=== PATIENT | female | born 1970 | race Caucasian/White ===

== ENCOUNTER 2016-03-27 08:00 | Outpatient (CLI) | payer BC | END 2016-03-27 23:59 | DX: N39.0 Urinary tract infection, site not specified (principal) ==

== ENCOUNTER 2017-02-18 08:00 | Outpatient (CLI) | payer BC ==
[2017-02-18 17:38] LABS: BILIRUBIN,URINE NEGATIVE (NEGATIVE); PH,URINE 5.5 PH (5.0-7.5)
[2017-02-18 17:42] LABS: WBC,URINE 0-3 /HPF (0-5)
[2017-02-18 17:43] LABS: UR CULTURE IF IND NOT INDICATED
== END 2017-02-18 08:01 | disposition home or self-care (01) ==
LOC: LAB.F 08:00
PROVIDERS: ATTEND Nurse Practitioner Family
DX: R30.0 Dysuria (principal)
CPT/HCPCS: 81001; 87086

== ENCOUNTER 2019-01-29 07:30 | Outpatient (CLI) | payer BC ==
--- NOTE | 2019-01-29 21:01 | XRAY Report ---
Reason: KNEE JOINT PAIN, RIGHT, M25.561 Procedure Date: 01/29/2019 Accession Number: [id number] / [id number] Procedure: XRS - Knee 3 View RT CPT Code: Final Report FULL RESULT: EXAM: RIGHT KNEE RADIOGRAPHY EXAM DATE: 01/29/2019 07:42 AM. CLINICAL HISTORY: KNEE JOINT PAIN, RIGHT, M25. 561. COMPARISON: None. TECHNIQUE: 3 views. FINDINGS: Bones: Normal. No fractures or bone lesions. Joints: Normal. No effusion. No subluxations. Soft Tissues: Unremarkable. IMPRESSION: Normal knee radiography. [facility]
== END 2019-01-29 07:31 | disposition home or self-care (01) ==
LOC: DI.S 07:30
PROVIDERS: ATTEND Family Medicine
DX: M25.561 Pain in right knee (principal)

== ENCOUNTER 2020-12-06 08:35 | Outpatient (CLI) | payer BC | END 2020-12-06 23:59 | disposition home or self-care (01) | LOC: LAB.S 08:35 | PROVIDERS: ATTEND Physician Assistant Medical | DX: R35.0 Frequency of micturition (principal); R30.0 Dysuria | CPT/HCPCS: 87077; 87086; 87181 ==

== ENCOUNTER 2022-03-12 07:00 | Outpatient (CLI) | payer BC ==
[2022-03-12 22:41] LABS: BACTERIAL VAGINOSIS DNA POSITIVE (NEGATIVE); CANDIDA GLABRATA DNA NEGATIVE (NEGATIVE); CANDIDA GROUP DNA NEGATIVE (NEGATIVE); CANDIDA KRUSEI DNA NEGATIVE (NEGATIVE); TRICHOMONAS VAGINALIS DNA NEGATIVE (NEGATIVE)
== END 2022-03-12 23:59 | disposition home or self-care (01) ==
LOC: LAB.S 07:00
PROVIDERS: ATTEND Physician Assistant Medical
DX: N76.0 Acute vaginitis (principal)
CPT/HCPCS: 81514

== ENCOUNTER 2023-01-25 08:00 | Outpatient (CLI) | payer BC ==
--- NOTE | 2023-01-25 11:55 | XRAY Report ---
PROCEDURE: Chest 2 View X-Ray INDICATIONS: PRODUCTIVE COUGH TECHNIQUE: 2 views of the chest were obtained. COMPARISON: None. FINDINGS: Surgical changes and devices: None. Lungs and pleura: No pleural effusions or pneumothorax. Lungs are clear. Mediastinum: Mediastinal contours appear normal. Heart size is normal. Bones and chest wall: No suspicious bony lesions. Overlying soft tissues appear unremarkable. IMPRESSION: Normal two-view chest x-ray Reviewed by: Umair Fletcher MD on 01/25/2023 10:54 AM [facility] Approved by: Umair Fletcher MD on 01/25/2023 10:54 AM [facility] Station ID: [id number]
== END 2023-01-25 23:59 | disposition home or self-care (01) ==
LOC: DI.S 08:00
PROVIDERS: ATTEND Physician Assistant Medical
DX: R05.8 Other specified cough (principal)

== ENCOUNTER 2023-07-25 08:00 | Outpatient (CLI) | payer BC ==
[2023-07-25 15:32] LABS: BILIRUBIN,URINE NEGATIVE (NEGATIVE); GLUCOSE, URINE (UA) NEGATIVE (NEGATIVE); KETONES,URINE (UA) NEGATIVE (NEGATIVE); LEUKOCYTE ESTERASE, URINE NEGATIVE (NEGATIVE); NITRITE,URINE NEGATIVE (NEGATIVE); OCCULT BLOOD,URINE TRACE-INTA (NEGATIVE); PROTEIN,URINE NEGATIVE (NEGATIVE); UROBILINOGEN,URINE 0.2 (NORMAL) E.U./dL (NORMAL)
[2023-07-25 15:54] LABS: CLARITY,URINE CLOUDY (CLEAR); RBC,URINE None Seen /HPF (0-5); SQUAMOUS EPITHELIAL CELL,UR RARE Squamous (<= Few); WBC,URINE 0-3 /HPF (0-5)
[2023-07-25 15:55] LABS: AMORPHOUS SEDIMENT,UR Few /LPF; BACTERIA,URINE None Seen /HPF (None Seen)
== END 2023-07-25 23:59 | disposition home or self-care (01) ==
LOC: LAB.S 08:00
PROVIDERS: ATTEND Emergency Medicine
DX: R10.9 Unspecified abdominal pain (principal)
CPT/HCPCS: 81001; 87086

== ENCOUNTER 2023-08-24 17:58 | Emergency (ER) | payer BC ==
--- NOTE | 2023-08-24 18:28 | XRAY Report ---
PROCEDURE: Elbow 3+V RT INDICATIONS: Trauma TECHNIQUE: 3 views of the elbow were acquired. COMPARISON: None. FINDINGS: Bones: No fractures or dislocations. No suspicious bony lesions. Soft tissues: No effusion. No suspicious soft tissue calcifications or masses. IMPRESSION: No displaced fractures are seen on this plain film study. In this patient with a given history of trauma, please correlate with focal tenderness. If clinically appropriate, please consider a short-term follow-up plain films series versus a dedicated CT study. Reviewed by: Stanley Dash MD on 08/24/2023 5:27 PM [facility] Approved by: Stanley Dash MD on 08/24/2023 5:27 PM [facility] Station ID: [id number]
[2023-08-24 18:35] VITALS: BP 136/98; O2SAT 99
--- NOTE | 2023-08-24 20:15 | ED Physician Documentation ---
PD HPI UPPER EXT INJURY - Stated complaint Stated Complaint: R ARM INJ - Chief complaint Chief Complaint: Trauma Ext - History obtained from History obtained from: Patient - History of Present Illness Location: Right, Elbow Where injury occurred: Work Timing - onset: How many hours ago (2) Timing - duration: Hours (2) Timing - details: Abrupt onset Pain level max: 7 Pain level now: 7 Improved by: Rest Worsened by: Moving, Palpating Associated symptoms: No: Weakness, Numbness, Tingling Contributing factors: No: Anticoagulated, Prior ortho surgery, Prosthetic joint - Additonal information Additional information: 52-year-old female states that 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 She states there is pain and swelling to the lateral aspect of the elbow. Worse with movement, better with rest. Took Motrin without relief. PD PAST MEDICAL HISTORY - Past Medical History Past Medical History: No - Past Surgical History Past Surgical History: No - Present Medications Home Medications: Ambulatory Orders Medication Instructions Recorded Confirmed HYDROcod/ACETAM 5/325 [Vicodin 1 - 2 ea PO Q6H PRN #15 tablet 04/01/15 5/325] Ibuprofen 400 mg PO PRN 04/01/15 04/01/15 - Allergies Allergies/Adverse Reactions: Allergies Allergy/AdvReac Type Severity Reaction Status Date / Time Penicillins Allergy Unknown Verified 08/24/23 19:14 - Social History Does the pt smoke?: No Smoking Status: Never smoker Does the pt drink ETOH?: No Does the pt have substance abuse?: No - Immunizations Immunizations are current?: Yes PD ED PE NORMAL - Vitals Vital signs reviewed: Yes - General General: Alert and oriented X 3, No acute distress - HEENT HEENT: Moist mucous membranes - Derm Derm: Warm and dry - Extremities Extremities: Other (R elbow Tender to palpation over the lateral epicondyle of the distal humerus. Reproduces her pain. No gross deformity. Full range of motion of the elbow present. No radial head tenderness. No olecranon tenderness. NVI) - Neuro Neuro: Alert and oriented X 3 Results - Vitals Vitals: Vital Signs - 24 hr 08/24/23 18:07 Temperature 36.2 C L Heart Rate 72 Respiratory 16 Rate Blood Pressure 136/98 H O2 Saturation 99 Oxygen O2 Source Room air - Rads (name of study) R elbow Relevant Findings:: Final report received, See rad report PD Medical Decision Making - ED course Complexity details: reviewed results, considered differential, d/w patient ED course: No acute findings on x-ray. Placed in a sling for comfort. Given a dose of pain medication here. Can use Motrin or Tylenol as needed for pain at home. No evidence of occult fracture. No joint effusion. Appears to be an elbow contusion. Patient counseled regarding signs and symptoms for which I believe and urgent re-evaluation would be necessary. Patient with good understanding of and agreement to plan and is comfortable going home at this time This document was made in part using voice recognition software. While efforts are made to proofread this document, sound alike and grammatical errors may occur. Departure - Departure Disposition: 01 Home, Self Care Clinical Impression: Contusion of right elbow Qualifiers: Encounter type: initial encounter Qualified Code(s): S50.01XA - Contusion of right elbow, initial encounter Condition: Good Instructions: ED Contusion Elbow Follow-Up: your,doctor if still having pain in 1 week [Other] Comments: Your x-ray does not show any acute abnormalities today. There is no evidence of fracture or dislocation. You appear to have an elbow contusion. We have placed you in a sling for comfort. You can ice the area as well. Please make sure you are continuing to gently move the elbow throughout the day over the nex t few days, do not stay in the sling longer than a few days. You can use Motrin or Tylenol as needed for pain at home. If you are still having pain in 1 week, you should have a repeat evaluation with your doctor. Forms: PCP List Discharge Date/Time: 08/24/23 20:29
[2023-08-24] MEDS: HYDROcod/ACETAM 5/325 MG TABLET PO STA (20:26)
== END 2023-08-24 20:29 | disposition home or self-care (01) ==
LOC: ED 17:58
DX: S50.01XA Contusion of right elbow, initial encounter (principal); W22.8XXA Striking against or struck by other objects, initial encounter; Y99.0 Civilian activity done for income or pay
CPT/HCPCS: 73080; 99283; A9270

== ENCOUNTER 2023-11-14 14:59 | Outpatient (CLI) | payer BC ==
[2023-11-14 21:20] LABS: CHLAMYDIA TRACHOMATIS DNA NEGATIVE (NEGATIVE); NEISSERIA GONORRHOEAE DNA NEGATIVE (NEGATIVE); TRICHOMONAS VAGINALIS DNA NEGATIVE (NEGATIVE)
== END 2023-11-14 15:00 | disposition home or self-care (01) ==
LOC: LAB.S 14:59
PROVIDERS: ATTEND Emergency Medicine
DX: N30.90 Cystitis, unspecified without hematuria (principal); N89.8 Other specified noninflammatory disorders of vagina
CPT/HCPCS: 87070; 87086; 87181; 87491; 87591; 87661